=== PATIENT | male | born 1935 | race Caucasian/White ===

== ENCOUNTER 2017-04-04 09:57 | Emergency (ER) | payer MEDICARE, OTHER ==
--- NOTE | 2017-04-04 10:31 | EDM.PDOC ---
ED HPI GENERAL MEDICAL PROBLEM - General Chief Complaint: Cardiovascular Problem Stated Complaint: ER Time Seen by Provider: 04/04/17 10:04 Source of Information: Reports: Patient, Old Records, RN, RN Notes Reviewed History Limitations: Reports: No Limitations - History of Present Illness INITIAL COMMENTS - FREE TEXT/NARRATIVE: 81-year-old male patient is brought over to the emergency room at [facility] from [facility] with concerns of tachycardia. According to the patient, he went to the clinic this morning because he was not feeling well and thought maybe he had the flu. Upon the clinics assessment the patient was noticed to be tachycardic. An EKG was obtained at that time which showed an uncontrolled atrial fibrillation. Therefore the patient was brought to the emergency room for further assessment and treatment. In the emergency room, the patient denies any symptomatology related to his fast heart rate. The patient denies any chest pain. The patient denies any shortness of breath. Patient denies any palpitations. The patient does not have any dyspnea on exertion. The patient denies any focal neurological deficits. The patient denies any nausea vomiting or diarrhea. Onset: Unknown/Unsure - Related Data Allergies Allergy/AdvReac Type Severity Reaction Status Date / Time No Known Allergies Allergy Verified 04/04/17 10:21 Home Meds: Home Meds Beta-Carotene(A) w/C & E/Min [Prosight] 1 cap PO DAILY 03/15/16 [History] Enalapril Maleate [Vasotec] 20 mg PO DAILY 03/15/16 [History] Hydrochlorothiazide 25 mg PO DAILY 03/15/16 [History] Metoprolol Succinate [Toprol XL] 25 mg PO BID 03/15/16 [History] Multivitamin with Minerals [Multiple Vitamin] 1 tab PO DAILY 03/15/16 [History] Niacin 1,000 mg PO DAILY 03/15/16 [History] Nitroglycerin [Nitrostat] 0.4 mg SL ASDIRECTED PRN 03/15/16 [History] Simvastatin [Zocor] 20 mg PO BEDTIME 03/15/16 [History] amLODIPine [Norvasc] 5 mg PO DAILY 03/15/16 [History] Aspirin 325 mg DAILY 04/04/17 [History] Past Medical History HEENT History: Reports: Cataract Cardiovascular History: Reports: CAD, Heart Failure, Heart Murmur, High Cholesterol, Hypertension, [place], Other (See Below) Other Cardiovascular History: aortic valve disorder, left ventricular hypertrophy, low hdl, Respiratory History: Reports: None Gastrointestinal History: Reports: None Genitourinary History: Reports: None [employer] 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 Musculoskeletal History: Reports: None Neurological History: Reports: None Psychiatric History: Reports: None Endocrine/Metabolic History: Reports: Other (See Below) Other Endocrine/Metabolic History: hyperglycemia Hematologic History: Reports: None Immunologic History: Reports: None Oncologic (Cancer) History: Reports: Basal Cell Carcinoma Dermatologic History: Reports: Other (See Below) Other Dermatologic History: actinic keratosis - Past Surgical History HEENT Surgical History: Reports: Cataract Surgery GI Surgical History: Reports: Appendectomy, Hernia Repair/Other Musculoskeletal Surgical History: Reports: Knee Replacement Social & Family History - Tobacco Use Smoking Status *Q: Former Smoker Used Tobacco, but Quit: Yes Month Tobacco Last Used: 60 years ago - Alcohol Use Days Per Week of Alcohol Use: 0 Number of Drinks Per Day: 0 Total Drinks Per Week: 0 - Recreational Drug Use Recreational Drug Use: No ED ROS GENERAL - Review of Systems Review Of Systems: See Below Constitutional: Denies: Fever, Chills, Weakness Respiratory: Denies: Shortness of Breath Cardiovascular: Denies: No Symptoms, Chest Pain, Palpitations GI/Abdominal: Denies: Abdominal Pain, Nausea, Vomiting Skin: Reports: No Symptoms Neurological: Reports: No Symptoms. Denies: Dizziness, Headache ED EXAM, GENERAL - Physical Exam Exam: See Below Exam Limited By: No Limitations General Appearance: Alert, No Apparent Distress Respiratory/Chest: No Respiratory Distress, Lungs Clear, Decreased Breath Sounds Cardiovascular: Tachycardia, Irregularly Irregular Peripheral Pulses: 2+: Radial (L), Radial (R) GI/Abdominal: Normal Bowel Sounds, Soft, Non-Tender Neurological: Alert, Oriented Skin Exam: Warm, Dry, Intact, Normal Color, No Rash EKG INTERPRETATION EKG Date: 04/04/17 Time: 10:09 Rhythm: A-Fib Rate (Beats/Min): 121 [place]: Normal P-Wave: Absent QRS: Normal ST-T: Normal QT: Normal [place]/PQ Interval: Absent Comparison: Change From Previous EKG EKG Interpretation Comments: 1. AFib with RVR 2. IVCD 3. IWMI, probably old Course - Vital Signs Last Recorded V/S: Last Vital Signs Temp 35.8 C 04/04/17 09:57 Pulse 114 H 04/04/17 10:50 Resp 20 04/04/17 10:50 BP 100/56 L 04/04/17 10:50 Pulse Ox 95 04/04/17 10:50 - Orders/Labs/Meds Orders: Active Orders 24 hr Category Date Time Status EKG 12 Lead [EKG Documentation Completion] [RC] STAT Care 04/04/17 10:34 Ordered BASIC METABOLIC PANEL,BMP [CHEM] Stat Lab 04/04/17 10:40 Received CK W CKMB [CHEM] Stat Lab 04/04/17 10:40 Received MAGNESIUM [CHEM] Stat Lab 04/04/17 10:40 Received TROPONIN I [CHEM] Stat Lab 04/04/17 10:40 Received Sodium Chloride 0.9% [Saline Flush] Med 04/04/17 10:48 Active 10 ml FLUSH ASDIRECTED PRN Peripheral IV Insertion Adult [OM.PC] Routine Oth 04/04/17 10:48 Ordered Medication Orders Sodium Chloride (Saline Flush) 10 ml FLUSH ASDIRECTED PRN PRN Reason: Keep Vein Open Labs: Laboratory Tests 04/04/17 Range/Units 10:40 WBC 8.0 (4.0-10.0) x10^3/uL RBC 4.48 L (4.5-6.0) x10^6/uL Hgb 13.8 L (14.0-18.0) g/dL Hct 41.6 (40.0-52.0) % MCV 92.9 (78.0-93.0) fL MCH 30.8 (26.0-32.0) pg MCHC 33.2 (32.0-36.0) g/dL RDW Coeff of Arabella 14.4 (10.0-15.0) % Plt Count 289 (130-400) x10^3/uL Add Manual Diff Yes Neutrophils % (Manual) 88 H (50-80) % Band Neutrophils % 5 (0-6) % Lymphocytes % (Manual) 5 L (25-50) % Monocytes % (Manual) 2 (2-11) % Platelet Estimate Adequate Meds: Medications Generic Name Dose Route Start Last Admin Trade Name Freq PRN Reason Stop Dose Admin Sodium Chloride 10 ml 04/04/17 10:48 Saline Flush FLUSH ASDIRECTED PRN Keep Vein Open Departure - Departure Time of Disposition: 11:19 Disposition: DC/Tfer to Acute Hospital 02 Reason for Transfer *Q: Other Condition: Good Clinical Impression: Uncontrolled atrial fibrillation Hypotension Qualifiers: Hypotension type: unspecified hypotension type Qualified Code(s): I95.9 - Hypotension, unspecified Forms: Interfacility Transfer [facility] ED Communication - ED Communication Date/Time Date: 04/04/17 Time Called: 10:34 - Discussed Case With (1) Discussed Case With (1): Outpatient Provider Person/s Notified (1): Zayra Jimenez - Conversation Summary Outpatient Provider Agreed to Follow-up on this Patient: Yes Summary Comment: Case discussed with Dr. Zayra Jimenez, Cardiology. Recommend stopping some blood pressure meds as BP is too low to give rate control medications. - Problem List Review Problem List Initiated/Reviewed/Updated: Yes - My Orders Last 24 Hours: My Active Orders 04/04/17 10:34 EKG 12 Lead [EKG Documentation Completion] [RC] STAT 04/04/17 10:40 BASIC METABOLIC PANEL,BMP [CHEM] Stat CK W CKMB [CHEM] Stat MAGNESIUM [CHEM] Stat TROPONIN I [CHEM] Stat 04/04/17 10:48 Sodium Chloride 0.9% [Saline Flush] 10 ml FLUSH ASDIRECTED PRN Peripheral IV Insertion Adult [OM.PC] Routine - Assessment/Plan Last 24 Hours: My Active Orders 04/04/17 10:34 EKG 12 Lead [EKG Documentation Completion] [RC] STAT 04/04/17 10:40 BASIC METABOLIC PANEL,BMP [CHEM] Stat CK W CKMB [CHEM] Stat MAGNESIUM [CHEM] Stat TROPONIN I [CHEM] Stat 04/04/17 10:48 Sodium Chloride 0.9% [Saline Flush] 10 ml FLUSH ASDIRECTED PRN Peripheral IV Insertion Adult [OM.PC] Routine Plan: Case was discussed with Dr. Mclaughlin accepting provider at [facility]. Full report given, all questions answered. The patient will be transferred to [place] via ALS. Discussed with Dr. Mclaughlin that cardiology would like to have some blood pressure pills stopped and will monitor patient for his blood pressure.
[2017-04-04] MEDS ORDERED: Sodium Chloride 0.9% 10 ML Syringe FLUSH PRN (10:48)
[2017-04-04 11:12] VITALS: BP 93/43
== END 2017-04-04 11:45 | disposition short-term general hospital (02) ==
LOC: VM.ED 09:57
DX: I48.91 Unspecified atrial fibrillation (principal); I95.9 Hypotension, unspecified; E78.00 Pure hypercholesterolemia, unspecified; I50.9 Heart failure, unspecified; Z79.899 Other long term (current) drug therapy; Z79.82 Long term (current) use of aspirin; Z87.891 Personal history of nicotine dependence
CPT/HCPCS: 36415; 80047; 82550; 82553; 83735; 84484; 85025; 93005; 99284-GF; 99285

== ENCOUNTER 2017-10-17 08:25 | Inpatient (IN) | payer MEDICARE, OTHER ==
[2017-10-17] MEDS ORDERED: Nitroglycerin 0.4 MG Tab.SL SL PRN (08:41)
[2017-10-17] MEDS ORDERED: Dextran 70/Hypromellose/PF Ophth Soln 0.9 ML UD EYEBOTH PRN (08:41)
[2017-10-17] MEDS ORDERED: Ondansetron 4 MG Tab.DIS PO PRN (08:41)
[2017-10-17] MEDS ORDERED: LORazepam 2 MG/ML SDV IVPUSH PRN (08:41)
[2017-10-17] MEDS ORDERED: Prochlorperazine 5 MG Tab PO PRN (08:41)
[2017-10-17] MEDS: Diazepam 2 MG Tab PO PRN ×3 (10:14→20:16)
[2017-10-17] MEDS: Cephalexin 500 MG Cap PO SCH ×3 (11:38→23:09)
[2017-10-17] MEDS: Potassium Chloride 20 MEQ Tab.ER PO SCH (11:38)
[2017-10-17] MEDS: Amiodarone 200 MG Tab PO SCH (11:38)
[2017-10-17] MEDS: Sodium Chloride 0.9% 10 ML Syringe IV SCH ×2 (11:39→23:10)
[2017-10-17] MEDS: Docusate Sodium 100 MG Cap PO PRN (11:39)
[2017-10-17] MEDS: Meclizine 25 MG Tab PO PRN ×2 (15:24→23:09)
[2017-10-17] MEDS: Beta-Carotene (Vitamin A) w/Vitamin C & E plus Minerals Tab PO SCH (20:11)
[2017-10-17] MEDS: Acetaminophen/Diphenhydramine 500-25 MG Tab PO SCH (20:14)
[2017-10-17] MEDS: Metoprolol Succinate 25 MG Tab.ER PO SCH (20:14)
[2017-10-17] MEDS: Mirtazapine 15 MG Tab PO SCH (20:15)
[2017-10-17] MEDS: Melatonin 3 MG Tab PO SCH (20:15)
[2017-10-17] MEDS: Sodium Chloride 0.9% 10 ML Syringe FLUSH PRN (20:23)
[2017-10-17] MEDS: QUEtiapine 25 MG Tab PO PRN (23:09)
[2017-10-18] MEDS: Meclizine 25 MG Tab PO PRN ×2 (05:17→23:32)
[2017-10-18] MEDS: QUEtiapine 25 MG Tab PO PRN ×2 (05:17→23:31)
[2017-10-18] MEDS: Cephalexin 500 MG Cap PO SCH ×4 (06:36→23:31)
[2017-10-18] MEDS: busPIRone 5 MG Tab PO SCH ×2 (08:32→20:02)
[2017-10-18] MEDS: Amiodarone 200 MG Tab PO SCH (08:32)
[2017-10-18] MEDS: Potassium Chloride 20 MEQ Tab.ER PO SCH (08:32)
[2017-10-18] MEDS: Sodium Chloride 0.9% 10 ML Syringe IV SCH ×2 (12:25→20:03)
--- NOTE | 2017-10-18 16:02 | PN ---
Progress Note for NICHOL FISHER Date: 10/18/2017 Room #: VM.203 SUBJECTIVE: An 81-year-old seen today on swing bed rounds. The patient was very dizzy yesterday. He did receive some Valium and meclizine, but what worked the best was meclizine and Seroquel. When he finally got that, he was able to rest most of the night, but then this morning around 5 a.m., he started grabbing at things again and could not be redirected, even sat up at the edge of the bed, was caught yesterday up walking in his room without clothes off, appeared to have better strength than we had anticipated for being in bed in the last week. He tells me his dizziness is better today. He was finally able to eat and take his medications yesterday. His vitals have all looked good. He has not had any fevers. He has had this delirium off and on throughout his stay, but it seems to be worse this morning. He is aware who his daughter is, but thinks he is at home and he does not know the date. OBJECTIVE: Vital Signs: Otherwise objectively, his temperature is 97.5, pulse 72, blood pressure 145/65, respiratory rate 18, and O2 is 94% on room air. General: He is in no acute distress. Heart: Regular rate and rhythm. S1, S2 without murmur. Lungs: Sounds are clear to auscultation bilaterally without crackles or wheezes. Abdomen: Positive bowel sounds. Soft and nontender. Extremities: Warm and dry. No edema. Mental Status: He is alert to person. Armendariz in place. His urine is clear. ASSESSMENT AND PLAN: 1. Resolved neutropenic fever. Counts are improving. We will recheck tomorrow. He is on Keflex with a stop date in place for at least 1 week total of full antibiotic treatment. 2. Delirium due to illness. We will check UA. 3. Urinary retention. Armendariz in place, now that counts are improving, we will likely do a voiding trial soon. 4. Thrombocytopenia. We will wait until at least his platelets get over 50, they were going up and there was no acute bleeding. 5. Symptomatic anemia with dizziness. He did get a transfusion 2 days ago, not sure that it helped the dizziness, but overall his strength and other symptoms have improved. 6. Underlying lymphoma, status post chemotherapy on the . He is going to get an LDH and lab tomorrow. 7. History of atrial fibrillation. He is on amiodarone in a sinus rhythm. We cannot increase Seroquel due to concern for prolonged QT. We also discontinued the Zofran. He is off anticoagulation due to low platelets. 8. History of aortic valve replacement with RADHA. 9. Hypokalemia, on oral replacement. 10.Essential hypertension, doing well on home medications. 11.Adjustment disorder, on Remeron. PLAN: At this point, the patient will continue swing bed cares. We will do supportive cares with redirection. We will hold off on further increase in Seroquel, but we will schedule some BuSpar and have Klonopin available p.r.n. The Valium was more for dizziness. It did not seem to help that much and is probably not helping the restlessness, so we will just adjust medications. He is already on melatonin at night. He does have some tramadol if needed for pain, but he has not used any of that since being on swing bed. MKA: 10/18/2017 15:18:07 MODL: 10/18/2017 15:47:45 /[id number]
[2017-10-18] MEDS: Mirtazapine 15 MG Tab PO SCH (20:00)
[2017-10-18] MEDS: Acetaminophen/Diphenhydramine 500-25 MG Tab PO SCH (20:00)
[2017-10-18] MEDS: Metoprolol Succinate 25 MG Tab.ER PO SCH (20:01)
[2017-10-18] MEDS: Melatonin 3 MG Tab PO SCH (20:02)
[2017-10-18] MEDS: Beta-Carotene (Vitamin A) w/Vitamin C & E plus Minerals Tab PO SCH (20:02)
[2017-10-19] MEDS: Cephalexin 500 MG Cap PO SCH ×4 (06:20→23:19)
[2017-10-19] MEDS: Sodium Chloride 0.9% 10 ML Syringe IV SCH ×2 (08:05→20:46)
[2017-10-19 08:19] LABS: CHLORIDE,CL 102 mmol/L (98-107); SODIUM,NA 130 mmol/L (136-145)
[2017-10-19] MEDS: Amiodarone 200 MG Tab PO SCH (10:04)
[2017-10-19] MEDS: Potassium Chloride 20 MEQ Tab.ER PO SCH (10:05)
[2017-10-19] MEDS: busPIRone 5 MG Tab PO SCH ×2 (10:05→20:43)
--- NOTE | 2017-10-19 10:39 | PN ---
Progress Note for NICHOL FISHER Date: 10/19/2017 Room #: VM.203 SUBJECTIVE: This is an 81-year-old on swing bed. The patient is doing better. He did get his Seroquel later last evening. So, he is a little bit groggy this morning. He has been less dizzy, but he is still weak when getting up and working with therapy. We talked about getting out the catheter, but he is not feeling like he maybe going to be able to use the urinal. His platelets are now just over 50. He has not had any bleeding problems. His UA was negative. OBJECTIVE: Vital Signs: His temperature is 98.7, pulse 73, blood pressure 146/70, respiratory rate 18, O2 of 94 on room air. General: He is in no acute distress. Heart: Regular rate and rhythm. Lungs: Sounds are clear to auscultation bilaterally without crackles or wheezes. Abdomen: Nondistended. Extremities: Warm and dry. No edema. : Catheter is in place. LABORATORY DATA: Reviewed. White count up to 5.1, hemoglobin 9.9, platelets 53. Sodium 130, potassium 4.0, chloride 102, bicarb 26, BUN 17, creatinine was 0.8, LDH was 224, albumin 1.8. ASSESSMENT AND PLAN: 1. Hyponatremia. We will encourage some Powerade. He is drinking tomato juice. We will monitor this and not put him on any fluid restriction. 2. Deconditioning, secondary to recent stay for neutropenic fever. He will complete Keflex tomorrow. 3. Delirium due to acute illness, seems to be improving. We will not schedule any Seroquel, but try to give it earlier in the evening if he needs it. 4. Urinary retention. Armendariz in place. We will not do a voiding trial today per the patient and family preference. He likely has underlying benign prostatic hypertrophy. 5. Thrombocytopenia, improving. 6. Symptomatic anemia with dizziness, improved. Hemoglobin up to 9.9. 7. Underlying lymphoma. 8. History of atrial fibrillation, on amiodarone in a sinus rhythm. 9. History of aortic valve replacement, but not requiring Coumadin. 10.Hypokalemia, on oral replacement. 11.Essential hypertension. He is off his home Maxzide due to orthostasis. He remains on a beta-amy. We will continue to monitor. 12.Adjustment disorder, on Remeron. He was also started on BuSpar yesterday and seems to be tolerating. He will continue on swing bed cares. We will repeat a sodium and blood count tomorrow due to low sodium. Continue with therapies. Continue supportive cares. He seems to be making good progress. MKA: 10/19/2017 10:13:59 MODL: 10/19/2017 10:33:12 /[id number]
[2017-10-19] MEDS: Beta-Carotene (Vitamin A) w/Vitamin C & E plus Minerals Tab PO SCH (20:42)
[2017-10-19] MEDS: Mirtazapine 15 MG Tab PO SCH (20:43)
[2017-10-19] MEDS: Acetaminophen/Diphenhydramine 500-25 MG Tab PO SCH (20:43)
[2017-10-19] MEDS: Melatonin 3 MG Tab PO SCH (20:43)
[2017-10-19] MEDS: Metoprolol Succinate 25 MG Tab.ER PO SCH (20:45)
[2017-10-20] MEDS: Cephalexin 500 MG Cap PO SCH ×2 (06:05→12:10)
[2017-10-20 07:10] LABS: CHLORIDE,CL 103 mmol/L (98-107); SODIUM,NA 136 mmol/L (136-145)
[2017-10-20 07:11] LABS: ANION GAP 11.2 mmol/L (10-20)
[2017-10-20] MEDS: busPIRone 5 MG Tab PO SCH ×2 (08:28→21:00)
[2017-10-20] MEDS: Potassium Chloride 20 MEQ Tab.ER PO SCH (08:28)
[2017-10-20] MEDS: Sodium Chloride 0.9% 10 ML Syringe FLUSH PRN ×3 (08:28→17:29)
[2017-10-20] MEDS: Amiodarone 200 MG Tab PO SCH (08:28)
[2017-10-20] MEDS: Sodium Chloride 0.9% 10 ML Syringe IV SCH (08:29)
[2017-10-20] MEDS ORDERED: Alteplase 2 MG Vial IV ONE (14:15)
--- NOTE | 2017-10-20 17:11 | PCM.SN ---
- Free Text/Narrative Note: Doing better today working with PT, took the juan out and voiding ok with post void only around 50. Platelets improving discussed risks and benefits of coumadin will get Oncology and Cardiology opinion before restarting. Lab again Monday.
[2017-10-20] MEDS: Beta-Carotene (Vitamin A) w/Vitamin C & E plus Minerals Tab PO SCH (20:58)
[2017-10-20] MEDS: Acetaminophen/Diphenhydramine 500-25 MG Tab PO SCH (20:58)
[2017-10-20] MEDS: Melatonin 3 MG Tab PO SCH (20:58)
[2017-10-20] MEDS: Mirtazapine 15 MG Tab PO SCH (20:59)
[2017-10-20] MEDS: Metoprolol Succinate 25 MG Tab.ER PO SCH (21:04)
[2017-10-21] MEDS: ClonazePAM 0.5 MG Tab PO PRN (00:26)
[2017-10-21] MEDS: Amiodarone 200 MG Tab PO SCH (07:40)
[2017-10-21] MEDS: busPIRone 5 MG Tab PO SCH ×2 (07:40→21:33)
[2017-10-21] MEDS: Potassium Chloride 20 MEQ Tab.ER PO SCH (07:40)
[2017-10-21] MEDS: Meclizine 25 MG Tab PO PRN (07:40)
[2017-10-21] MEDS: traMADol 50 MG Tab PO PRN (07:40)
[2017-10-21] MEDS: Melatonin 3 MG Tab PO SCH (21:29)
[2017-10-21] MEDS: Acetaminophen/Diphenhydramine 500-25 MG Tab PO SCH (21:31)
[2017-10-21] MEDS: Beta-Carotene (Vitamin A) w/Vitamin C & E plus Minerals Tab PO SCH (21:31)
[2017-10-21] MEDS: Metoprolol Succinate 25 MG Tab.ER PO SCH (21:33)
[2017-10-21] MEDS: Mirtazapine 15 MG Tab PO SCH (21:34)
[2017-10-22] MEDS: ClonazePAM 0.5 MG Tab PO PRN (07:26)
[2017-10-22] MEDS: Potassium Chloride 20 MEQ Tab.ER PO SCH (07:26)
[2017-10-22] MEDS: busPIRone 5 MG Tab PO SCH ×2 (07:26→21:26)
[2017-10-22] MEDS: Amiodarone 200 MG Tab PO SCH (07:27)
[2017-10-22] MEDS: traMADol 50 MG Tab PO PRN (07:27)
[2017-10-22] MEDS: Meclizine 25 MG Tab PO PRN (07:27)
[2017-10-22] MEDS: Metoprolol Succinate 25 MG Tab.ER PO SCH (21:24)
[2017-10-22] MEDS: Acetaminophen/Diphenhydramine 500-25 MG Tab PO SCH (21:24)
[2017-10-22] MEDS: Melatonin 3 MG Tab PO SCH (21:26)
[2017-10-22] MEDS: Mirtazapine 15 MG Tab PO SCH (21:26)
[2017-10-22] MEDS: Beta-Carotene (Vitamin A) w/Vitamin C & E plus Minerals Tab PO SCH (21:28)
[2017-10-23 07:32] LABS: CHLORIDE,CL 105 mmol/L (98-107); SODIUM,NA 139 mmol/L (136-145)
[2017-10-23 07:33] LABS: ANION GAP 7.8 mmol/L (10-20)
[2017-10-23] MEDS: Potassium Chloride 20 MEQ Tab.ER PO SCH (08:21)
[2017-10-23] MEDS: busPIRone 5 MG Tab PO SCH ×2 (08:21→20:12)
[2017-10-23] MEDS: Amiodarone 200 MG Tab PO SCH (08:21)
[2017-10-23] MEDS ORDERED: Acetaminophen/Diphenhydramine 500-25 MG Tab PO SCH (20:00)
[2017-10-23] MEDS: Beta-Carotene (Vitamin A) w/Vitamin C & E plus Minerals Tab PO SCH (20:04)
[2017-10-23] MEDS: traMADol 50 MG Tab PO PRN (20:07)
[2017-10-23] MEDS: Metoprolol Succinate 25 MG Tab.ER PO SCH (20:08)
[2017-10-23] MEDS: Mirtazapine 15 MG Tab PO SCH (20:08)
[2017-10-23] MEDS: Melatonin 3 MG Tab PO SCH (20:11)
[2017-10-23] MEDS: QUEtiapine 25 MG Tab PO PRN (21:06)
[2017-10-24] MEDS: Amiodarone 200 MG Tab PO SCH (08:27)
[2017-10-24] MEDS: busPIRone 5 MG Tab PO SCH (08:27)
[2017-10-24] MEDS: Potassium Chloride 20 MEQ Tab.ER PO SCH (08:27)
[2017-10-24] MEDS ORDERED: traMADol 50 MG Tab PO PRN (09:46)
--- NOTE | 2017-10-24 10:45 | PN ---
Progress Note for NICHOL FISHER Date: 10/24/2017 Room #: VM.203 SUBJECTIVE: This is an 81-year-old seen today for swing bed rounds. He had been more sedated this morning. He had a bad weekend. He was more sedated. He did receive some Klonopin. He had not been receiving Seroquel but last evening due to some pulling at clothes and being more restless about an hour to hour and a half after his pills, he was given a dose. He has also been complaining of a mild headache over the last few days. Did get some Ultram last night. He does have Tylenol with Benadryl at bedtime. We decreased this to just 1 instead of 2 last night. Otherwise, his blood counts are improving. He is afebrile. He is not anticoagulated now for his atrial fibrillation, but seems to have maintained a sinus rhythm on the amiodarone and discussion was had between Oncology and Cardiology and felt that the risk of Coumadin given his lymphoma and other health comorbidities outweigh the benefits, so warfarin will not be restarted. OBJECTIVE: Vital Signs: This morning temperature is 97.5, pulse is 80, blood pressure 125/60, respiratory rate 18, and O2 92% on room air. General: He is in no acute distress. Heart: Regular rate and rhythm. Lungs: Sounds are clear to auscultation bilaterally without crackles or wheezes. Neurologic: He seems quite somnolent. It is almost hard for him to stay awake, but he seems to know where he is at and be orientated to his surroundings. LABORATORY DATA: From yesterday again, white count 8.2, hemoglobin 9.9, platelets 100. Sodium 139, potassium 3.8, chloride 105, bicarb 30, BUN 19, creatinine 1, calcium 8.2. ASSESSMENT AND PLAN: 1. Somnolence due to medications with still some delirium and restlessness. At this point, discussed with the daughter and patient. We will back off to only 25 mg of tramadol for severe pain, but use Tylenol instead for mild pain. I will stop the Tylenol with Benadryl. We will decrease the BuSpar to just once daily in the morning and likely stop it later in the week. We will stop Klonopin and meclizine. We will also decrease Seroquel to 12.5 in case he needs it for sleep. 2. Hyponatremia, resolved. 3. Severe deconditioning. He was doing better last week. Now he just needs to gain some strength back and work with therapies. 4. Urinary retention. Armendariz was removed without problems. 5. Neutropenic fever, resolved. He is off antibiotics. 6. Underlying lymphoma. He will follow up with Oncology on discharge. 7. Continued anemia with improving blood count. 8. History of atrial fibrillation on amiodarone, but off Coumadin. 9. History of aortic valve replacement, but not requiring Coumadin for that. 10.Hypokalemia, on replacement. 11.Essential hypertension. He remains on his beta-amy, doing well. 12.Adjustment disorder, on Remeron. 13.Hfwxeucz-bi-vmdsaq malnutrition. PLAN: At this point, as discussed above. We will adjust and decrease multiple medications which were used p.r.n. during his stay. Hopefully this will help him to have more energy and participation with therapies. No discharge date is yet planned and we will do a renal panel on Monday to check his albumin. MKA: 10/24/2017 09:51:12 MODL: 10/24/2017 10:38:40 /[id number]
[2017-10-24] MEDS: Acetaminophen 325 MG Tab PO PRN (14:58)
[2017-10-24] MEDS: Docusate Sodium 100 MG Cap PO PRN (19:56)
[2017-10-24] MEDS: Beta-Carotene (Vitamin A) w/Vitamin C & E plus Minerals Tab PO SCH (19:57)
[2017-10-24] MEDS: Mirtazapine 15 MG Tab PO SCH (19:57)
[2017-10-24] MEDS: QUEtiapine 25 MG Tab PO PRN (19:57)
[2017-10-24] MEDS: Melatonin 3 MG Tab PO SCH (19:57)
[2017-10-24] MEDS: Metoprolol Succinate 25 MG Tab.ER PO SCH (19:58)
[2017-10-25] MEDS: busPIRone 5 MG Tab PO SCH (08:36)
[2017-10-25] MEDS: Amiodarone 200 MG Tab PO SCH (08:36)
[2017-10-25] MEDS: Potassium Chloride 20 MEQ Tab.ER PO SCH (08:36)
[2017-10-25] MEDS: Mirtazapine 15 MG Tab PO SCH (20:09)
[2017-10-25] MEDS: Melatonin 3 MG Tab PO SCH (20:09)
[2017-10-25] MEDS: Beta-Carotene (Vitamin A) w/Vitamin C & E plus Minerals Tab PO SCH (20:09)
[2017-10-25] MEDS: Metoprolol Succinate 25 MG Tab.ER PO SCH (20:10)
[2017-10-25] MEDS: QUEtiapine 25 MG Tab PO PRN (20:13)
[2017-10-26] MEDS: busPIRone 5 MG Tab PO SCH (07:59)
[2017-10-26] MEDS: Potassium Chloride 20 MEQ Tab.ER PO SCH (07:59)
[2017-10-26] MEDS: Amiodarone 200 MG Tab PO SCH (07:59)
[2017-10-26] MEDS: Docusate Sodium 100 MG Cap PO PRN (07:59)
[2017-10-26] MEDS: Acetaminophen 325 MG Tab PO PRN (16:33)
[2017-10-26] MEDS: Metoprolol Succinate 25 MG Tab.ER PO SCH (20:55)
[2017-10-26] MEDS: Beta-Carotene (Vitamin A) w/Vitamin C & E plus Minerals Tab PO SCH (20:55)
[2017-10-26] MEDS: Mirtazapine 15 MG Tab PO SCH (20:56)
[2017-10-26] MEDS: QUEtiapine 25 MG Tab PO PRN (20:57)
[2017-10-26] MEDS: Melatonin 3 MG Tab PO SCH (20:57)
[2017-10-27] MEDS: Potassium Chloride 20 MEQ Tab.ER PO SCH (08:05)
[2017-10-27] MEDS: Amiodarone 200 MG Tab PO SCH (08:05)
[2017-10-27] MEDS: busPIRone 5 MG Tab PO SCH (08:05)
[2017-10-27] MEDS: Acetaminophen 325 MG Tab PO PRN ×2 (11:25→19:31)
[2017-10-27] MEDS: QUEtiapine 25 MG Tab PO PRN (19:28)
[2017-10-27] MEDS: Metoprolol Succinate 25 MG Tab.ER PO SCH (19:28)
[2017-10-27] MEDS: Beta-Carotene (Vitamin A) w/Vitamin C & E plus Minerals Tab PO SCH (19:31)
[2017-10-27] MEDS: Melatonin 3 MG Tab PO SCH (19:31)
[2017-10-27] MEDS: Mirtazapine 15 MG Tab PO SCH (19:32)
[2017-10-28] MEDS: QUEtiapine 25 MG Tab PO PRN (03:05)
[2017-10-28] MEDS: Amiodarone 200 MG Tab PO SCH (08:13)
[2017-10-28] MEDS: Potassium Chloride 20 MEQ Tab.ER PO SCH (08:13)
[2017-10-28] MEDS: Acetaminophen 325 MG Tab PO PRN (08:13)
[2017-10-28] MEDS: Metoprolol Succinate 25 MG Tab.ER PO SCH (20:01)
[2017-10-28] MEDS: Beta-Carotene (Vitamin A) w/Vitamin C & E plus Minerals Tab PO SCH (20:01)
[2017-10-28] MEDS: Melatonin 3 MG Tab PO SCH (20:02)
[2017-10-28] MEDS: Mirtazapine 15 MG Tab PO SCH (20:02)
[2017-10-28] MEDS: Docusate Sodium 100 MG Cap PO PRN (20:02)
[2017-10-29] MEDS: Amiodarone 200 MG Tab PO SCH (07:36)
[2017-10-29] MEDS: Potassium Chloride 20 MEQ Tab.ER PO SCH (07:36)
[2017-10-29] MEDS: Acetaminophen 325 MG Tab PO PRN ×2 (11:12→17:13)
[2017-10-29] MEDS: Docusate Sodium 100 MG Cap PO PRN (16:47)
[2017-10-29] MEDS ORDERED: Magnesium Hydroxide 400 MG/5 ML Susp 30 ML Cup PO PRN (17:32)
[2017-10-29] MEDS: Sennosides 8.6 MG Tab PO PRN (17:57)
[2017-10-29] MEDS: Melatonin 3 MG Tab PO SCH (20:15)
[2017-10-29] MEDS: Mirtazapine 15 MG Tab PO SCH (20:15)
[2017-10-29] MEDS: Metoprolol Succinate 25 MG Tab.ER PO SCH (20:15)
[2017-10-29] MEDS: Beta-Carotene (Vitamin A) w/Vitamin C & E plus Minerals Tab PO SCH (20:16)
[2017-10-30 07:34] LABS: CHLORIDE,CL 105 mmol/L (98-107); SODIUM,NA 138 mmol/L (136-145)
[2017-10-30] MEDS: Sennosides 8.6 MG Tab PO PRN (07:35)
[2017-10-30] MEDS: Amiodarone 200 MG Tab PO SCH (07:35)
[2017-10-30] MEDS: Potassium Chloride 20 MEQ Tab.ER PO SCH (07:35)
[2017-10-30] MEDS: Acetaminophen 325 MG Tab PO PRN (09:49)
[2017-10-30] MEDS: Docusate Sodium 100 MG Cap PO PRN (14:04)
--- NOTE | 2017-10-30 18:52 | PN ---
Progress Note for NICHOL FISHER Date: 10/30/2017 Room #: VM.203 SUBJECTIVE: This is an 81-year-old seen today for followup. The patient had lab work this morning that looked okay except for increasing white count, but all blood counts have been increasing ever since he was in with neutropenic fever. The patient has been afebrile. He had a UA this weekend that was normal. He is not coughing, not having any breathing problems. The only ongoing concern is some increased restlessness at night. He has been getting some Seroquel. He does tend to get quite sleepy during the day, so we cut back on his other medications. We actually discontinued his Tylenol PM, but he has been on Remeron 7.5 at bedtime. OBJECTIVE: Vital Signs: His temperature is 98, pulse 69, blood pressure 123/65, respiratory rate 16, and O2 98% on room air. General: He is in no acute distress. Heart: Regular rate and rhythm. Lungs: Lungs sounds are clear to auscultation bilaterally without crackles or wheezes. Extremities: Warm and dry. No edema. LABORATORY DATA: Lab work reviewed. White count 14.3, hemoglobin 9.6, and platelets 186. Sodium, electrolytes all within range except BUN slightly high at 21, creatinine 1.1, calcium 8.4, and albumin up to 2.1. ASSESSMENT AND PLAN: 1. Restlessness at night. We will try increasing the Remeron. We will keep Seroquel p.r.n. 2. Constipation. We will use his Colace more regularly, given some milk of magnesia today in an effort to try to promote bowel motility. He also has senna available. 3. BPH with some urinary retention. This has resolved. He is voiding fine. 4. Neutropenic fever, resolved. He is off antibiotics. 5. Underlying lymphoma with leukocytosis. Family was deciding on whether or not to pursue a PET scan. They are not planning on pursuing further treatments. 6. Chronic anemia. 7. History of atrial fibrillation, in sinus rhythm on amiodarone. He is off Coumadin. 8. History of aortic valve replacement. 9. Hypokalemia, on replacement. 10.Essential hypertension, controlled on metoprolol. 11.Adjustment disorder. 12.Moderate to severe protein-calorie malnutrition. He is on protein supplements. PLAN: At this point, the patient will continue swing bed cares. He is working with physical therapy. We will get OT involved as well. Discharge plan would be home likely with family for 24 hours supervision when he is able. MKA: 10/30/2017 16:57:16 MODL: 10/30/2017 17:22:11 /[id number]
[2017-10-30] MEDS: Melatonin 3 MG Tab PO SCH (20:16)
[2017-10-30] MEDS: Mirtazapine 15 MG Tab PO SCH (20:17)
[2017-10-30] MEDS: Metoprolol Succinate 25 MG Tab.ER PO SCH (20:17)
[2017-10-30] MEDS: Beta-Carotene (Vitamin A) w/Vitamin C & E plus Minerals Tab PO SCH (20:17)
[2017-10-31] MEDS: Potassium Chloride 20 MEQ Tab.ER PO SCH (09:06)
[2017-10-31] MEDS: Amiodarone 200 MG Tab PO SCH (09:06)
[2017-10-31] MEDS: Acetaminophen 325 MG Tab PO PRN (16:12)
[2017-10-31] MEDS: Melatonin 3 MG Tab PO SCH (20:50)
[2017-10-31] MEDS: Beta-Carotene (Vitamin A) w/Vitamin C & E plus Minerals Tab PO SCH (20:50)
[2017-10-31] MEDS: Metoprolol Succinate 25 MG Tab.ER PO SCH (20:51)
[2017-10-31] MEDS: Mirtazapine 15 MG Tab PO SCH (20:52)
[2017-11-01] MEDS: Amiodarone 200 MG Tab PO SCH (08:05)
[2017-11-01] MEDS: Potassium Chloride 20 MEQ Tab.ER PO SCH (08:05)
[2017-11-01] MEDS: Acetaminophen 325 MG Tab PO PRN ×2 (10:59→20:09)
[2017-11-01] MEDS: Melatonin 3 MG Tab PO SCH (20:06)
[2017-11-01] MEDS: Metoprolol Succinate 25 MG Tab.ER PO SCH (20:06)
[2017-11-01] MEDS: Beta-Carotene (Vitamin A) w/Vitamin C & E plus Minerals Tab PO SCH (20:06)
[2017-11-01] MEDS: Mirtazapine 15 MG Tab PO SCH (20:09)
[2017-11-02] MEDS: Acetaminophen 325 MG Tab PO PRN ×2 (09:12→13:42)
[2017-11-02] MEDS: Potassium Chloride 20 MEQ Tab.ER PO SCH (09:12)
[2017-11-02] MEDS: Amiodarone 200 MG Tab PO SCH (09:12)
[2017-11-02] MEDS ORDERED: traMADol 50 MG Tab PO PRN (11:44)
[2017-11-02] MEDS ORDERED: Temazepam 15 MG Cap PO SCH (20:00)
[2017-11-02] MEDS: Melatonin 3 MG Tab PO SCH (20:06)
[2017-11-02] MEDS: Acetaminophen 650 MG Tab.ER PO SCH (20:06)
[2017-11-02] MEDS: Beta-Carotene (Vitamin A) w/Vitamin C & E plus Minerals Tab PO SCH (20:06)
[2017-11-02] MEDS: Mirtazapine 15 MG Tab PO SCH (20:07)
[2017-11-02] MEDS: Metoprolol Succinate 25 MG Tab.ER PO SCH (20:11)
[2017-11-03 06:44] LABS: ANION GAP 7.5 mmol/L (10-20)
[2017-11-03] MEDS: Amiodarone 200 MG Tab PO SCH (08:00)
[2017-11-03] MEDS: Potassium Chloride 20 MEQ Tab.ER PO SCH (08:00)
[2017-11-03] MEDS: Acetaminophen 325 MG Tab PO PRN (10:45)
--- NOTE | 2017-11-03 16:38 | PN ---
Progress Note for NICHOL FISHER Date: 11/03/2017 Room #: VM.203 SUBJECTIVE: This is an 81-year-old on swing bed. The patient continues to have problems with restlessness at night. We did start him on Restoril 15 mg at bedtime. He has been more sleepy today. He is able to wake up and answer questions appropriately. He is aware he is in the hospital, but just tells me he lost his appetite. He denies that he is in any pain, but they were concerned at his care conference about pain. He has had tramadol ordered. He has not taken any on swing bed. He has not had his Tylenol PM, but we did schedule regular Tylenol. He otherwise has had Seroquel p.r.n. for restlessness, but had not received any since the . Otherwise, he is not coughing. He is not short of breath. No fever. No chills. OBJECTIVE: Vital Signs: His temperature 97.8, pulse 62, blood pressure 111/59, respiratory rate 18, and O2 97% on room air. General: He is in no acute distress. Heart: Regular rate and rhythm. S1, S2 without murmur. Lungs: Sounds are clear to auscultation bilaterally without crackles or wheezes. Abdomen: Positive bowel sounds. Soft and nontender. Extremities: Warm and dry no edema. Mental Status: Again, he is alert and orientated x2, but he would not give me the date. LABORATORY DATA: Lab work did show white count 12.5; hemoglobin 9.8, which has been stable; and platelets up to 229. Sodium 134, potassium 4.5, chloride 104, bicarb 27, BUN 27, creatinine 1.3, and calcium 8.3. UA checked on the was normal. He is eating up to 100% of snacks, but only about 50% of meals. He has been not taking lunch in the last couple of days. ASSESSMENT AND PLAN: 1. Delirium, status post neutropenic fever. Multiple medication adjustments were made yesterday. For his restlessness at night, Restoril was started, but due to the sleepiness today, we will give him half a dose. He is not on any benzodiazepines during the day. He is also on Remeron at night. 2. Benign prostatic hypertrophy with urinary retention. This has resolved. Armendariz is out. He is voiding okay. We will have a bladder scan, and they will notify me if over 400. 3. Underlying lymphoma, status post 4 chemotherapy treatments. I discussed with his oncologist. They feel that he is likely in remission. No further treatments or PET scans should be pursued, per patient preference. At this point, I did update his daughter of that. 4. Chronic anemia, stable. 5. History of atrial fibrillation. He is now in a sinus rhythm, on amiodarone. Counts are stable. The question is whether or not we should restart Coumadin. We will address with his son when he returns on Monday. Certainly, now he is still quite a fall risk, so I would like to hold off. 6. History of aortic valve replacement. 7. Hypokalemia, replaced orally. I am going to actually cut down to just 20 mEq daily. 8. Essential hypertension, controlled. 9. Adjustment disorder. 10.Miolgygh-pq-gqvpvt protein calorie malnutrition. We will continue to encourage p.o. intake. The plan, at this point, the patient will continue swing bed cares. He is working with therapies. Once he clears up a little, hopefully with med changes, we will get an OT for cognitive evaluation. MKA: 11/03/2017 16:17:12 MODL: 11/03/2017 16:33:37 /[id number]
[2017-11-03] MEDS ORDERED: Temazepam 15 MG Cap PO SCH (20:00)
[2017-11-03] MEDS: Acetaminophen 650 MG Tab.ER PO SCH (20:23)
[2017-11-03] MEDS: Melatonin 3 MG Tab PO SCH (20:24)
[2017-11-03] MEDS: Temazepam 15 MG Cap PO PRN (20:24)
[2017-11-03] MEDS: Metoprolol Succinate 25 MG Tab.ER PO SCH (20:24)
[2017-11-03] MEDS: Beta-Carotene (Vitamin A) w/Vitamin C & E plus Minerals Tab PO SCH (20:24)
[2017-11-03] MEDS: Mirtazapine 15 MG Tab PO SCH (20:24)
[2017-11-04] MEDS: Amiodarone 200 MG Tab PO SCH (11:07)
[2017-11-04] MEDS: Potassium Chloride 20 MEQ Tab.ER PO SCH (11:07)
[2017-11-04] MEDS: QUEtiapine 25 MG Tab PO PRN (11:08)
[2017-11-04] MEDS: Acetaminophen 325 MG Tab PO PRN (11:08)
[2017-11-04] MEDS: Metoprolol Succinate 25 MG Tab.ER PO SCH (20:45)
[2017-11-04] MEDS: Beta-Carotene (Vitamin A) w/Vitamin C & E plus Minerals Tab PO SCH (20:45)
[2017-11-04] MEDS: Melatonin 3 MG Tab PO SCH (20:46)
[2017-11-04] MEDS: Acetaminophen 650 MG Tab.ER PO SCH (20:46)
[2017-11-04] MEDS: Mirtazapine 15 MG Tab PO SCH (20:48)
[2017-11-04] MEDS: Temazepam 15 MG Cap PO PRN (23:16)
[2017-11-05] MEDS: Acetaminophen 325 MG Tab PO PRN (11:05)
[2017-11-05] MEDS: Amiodarone 200 MG Tab PO SCH (11:05)
[2017-11-05] MEDS: Potassium Chloride 20 MEQ Tab.ER PO SCH (11:05)
[2017-11-05] MEDS: Acetaminophen 650 MG Tab.ER PO SCH (20:24)
[2017-11-05] MEDS: Beta-Carotene (Vitamin A) w/Vitamin C & E plus Minerals Tab PO SCH (20:24)
[2017-11-05] MEDS: Mirtazapine 15 MG Tab PO SCH (20:25)
[2017-11-05] MEDS: Temazepam 15 MG Cap PO PRN (20:25)
[2017-11-05] MEDS: Melatonin 3 MG Tab PO SCH (20:25)
[2017-11-05] MEDS: Metoprolol Succinate 25 MG Tab.ER PO SCH (20:26)
[2017-11-05] MEDS: QUEtiapine 25 MG Tab PO PRN (23:09)
[2017-11-06 05:17] VITALS: BP 141/55
[2017-11-06] MEDS ORDERED: Meclizine 25 MG Tab PO PRN (08:59)
[2017-11-06] MEDS ORDERED: Meclizine 25 MG Tab PO ONE (09:00)
[2017-11-06] MEDS: Amiodarone 200 MG Tab PO SCH (09:02)
[2017-11-06] MEDS: Potassium Chloride 20 MEQ Tab.ER PO SCH (09:02)
[2017-11-06] MEDS: Acetaminophen 325 MG Tab PO PRN (09:02)
--- NOTE | 2017-11-07 03:11 | DISCH ---
DATE OF SWING BED ADMISSION: 10/17/2017 PRIMARY DISCHARGE DIAGNOSES: 1. Neutropenic fever secondary to chemotherapy for lymphoma. 2. Delirium related to neutropenic fever, worsening with poor oral intake. 3. Dizziness, unknown etiology. The patient had previously and it resolved. 4. High-grade B-cell lymphoma, stage II, status post 4 rounds of chemotherapy, felt to be in remission per Oncology. 5. Benign prostatic hypertrophy with urinary retention, resolved. He was voiding without a catheter. 6. 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 7. History of atrial fibrillation, in a sinus rhythm on amiodarone but off Coumadin. 8. History of aortic valve replacement. 9. Hypokalemia with stable potassium of 4.5, requiring less potassium supplements, so discharged without oral potassium. 10.Essential hypertension, controlled. He is on metoprolol. His hydrochlorothiazide was discontinued due to orthostasis. 11.Adjustment disorder. 12.Severe protein calorie malnutrition. 13.History of diastolic heart failure, stable, not requiring Lasix. 14.Coronary artery disease and remote myocardial infarction. 15.Obesity. 16.Insomnia with restlessness at night, probably part of his delirium. REASON FOR ADMISSION: On the date of admission, this 81-year-old male had been treated under acute care for neutropenic fever. No source of infection was found, but he did complete antibiotics, and his counts gradually improved. He had pancytopenia actually and his platelets were down to 20. He actually required a blood transfusion but no platelets as he had no bleeding. His platelets came up all the way to 229 on discharge. His Coumadin had been discontinued due to his bleeding risk. He was not coughing, not short of breath, not having any pneumonia or breathing problems. He was working with therapies but then he started to decline again around the and . A family conference was planned. We talked about making medication adjustments. We had already discontinued his Benadryl. We scheduled Tylenol again at night. He had not been using any tramadol for pain medication, even though it was available. We scheduled him on Restoril. It seemed to help him sleep well, but he was quite fatigued and tired the next day but did eat about 50% of his supper. Then over the weekend, he did not eat at all. The family was considering more comfort measures with hospice care and are hopeful for being discharged with that plan today. He also had Seroquel available and did get a dose the last 2 nights, but had not for a while prior to that. It did seem to work early on for his restlessness, He really had restlessness and agitation on and off during his stay. Usually during the day, he was alert and orientated by x3, but on the time of discharge, he was not even quite sure where he was at. He did know and recognizes son. Otherwise, he had a scan during his stay for dizziness which came back okay. He did receive some meclizine prior to discharge. He had been having any nausea or requiring any nausea medications. He did not seem to be overly agitated during the day time. He was actually sleeping quite a bit more which resulted in his difficulty in regression with therapies. Therefore, notice was put in by PT today. He still had the opportunity to work with occupational therapy for another day or 2, but family just really wanted to take him home, and the patient also had the goal to return home even in the previous weeks. Therefore, discussion was had between son, Lenny Kelley , director social welfare and myself that the patient was actually requiring up to assist of 2 to transfer to the commode. At this point, they did not want the catheter to be put back in. They had some caregivers they were trying to line up. DISCHARGE PLAN/INSTRUCTION: They are going home with hospice. New medications for the patient recently started were Restoril for sleep. He will also have a prescription for the Seroquel and meclizine. Pain medications: He may have some tramadol left at home, but we will have the emergency kit with hospice, which would include morphine. Otherwise, he does have nausea medications left from his previous chemotherapy. No blood work was done on the date of discharge. It had all been stable previously. PHYSICAL EXAMINATION: Vital Signs: Discharge vitals include temperature 98, pulse 82, blood pressure 141/55, respiratory rate 18, and O2 at 100 on room air. General: He is in no acute distress. HEART: Regular rate and rhythm without murmur noted. Pulmonary: Lung sounds clear to auscultation bilaterally without crackles or wheezes. Abdomen: Nontender, nondistended. Extremities: Warm and dry. No edema. Skin: Overall does appear pale. Mental Status: Again he was alert and orientated to person. It should be noted on discharge too his albumin was low at 2.1 but had improved with protein powders. His white count had also gone up to 14 on 10/30 but was down to 12.5 and he was having no fevers. The patient is encouraged to eat and drink on discharge whenever he likes to keep up his strength. If he did improve at some point, he could consider going on Home Health for home PT. Otherwise, in the meantime, he will be under hospice care. Greater than 30 minutes spent on this discharge process. MKA: 11/06/2017 20:58:17 MODL: 11/07/2017 03:06:15 /[id number]
== END 2017-11-06 13:10 | disposition hospice, home (50) | DRG 808 ==
LOC: VM.MS 09:45
PROVIDERS: ADMIT Internal Medicine; ATTEND Internal Medicine
DX: D70.1 Agranulocytosis secondary to cancer chemotherapy (principal); E43 Unspecified severe protein-calorie malnutrition; C83.30 Diffuse large B-cell lymphoma, unspecified site; I50.32 Chronic diastolic (congestive) heart failure; E87.1 Hypo-osmolality and hyponatremia; T45.1X5A Adverse effect of antineoplastic and immunosuppressive drugs, initial encounter; R50.81 Fever presenting with conditions classified elsewhere; N40.1 Benign prostatic hyperplasia with lower urinary tract symptoms; Z66 Do not resuscitate; Z51.5 Encounter for palliative care; R33.8 Other retention of urine; I48.91 Unspecified atrial fibrillation; Z95.4 Presence of other heart-valve replacement; E87.6 Hypokalemia; F43.20 Adjustment disorder, unspecified; I11.0 Hypertensive heart disease with heart failure; I25.10 Atherosclerotic heart disease of native coronary artery without angina pectoris; K59.00 Constipation, unspecified; D63.8 Anemia in other chronic diseases classified elsewhere; D69.6 Thrombocytopenia, unspecified; R42 Dizziness and giddiness; I25.2 Old myocardial infarction; E66.9 Obesity, unspecified; G47.00 Insomnia, unspecified; Z68.24 Body mass index [BMI] 24.0-24.9, adult; Z79.899 Other long term (current) drug therapy
CPT/HCPCS: 36415; 51798; 70450; 80048; 80053; 80069; 81001; 82533; 83615; 85025; 97110-GP; 97116-GP; 97165-GO; 97535-GO; A9270-GY; J1642; J2997; J7050